=== PATIENT | female | born 1965 | race Caucasian/White ===

== ENCOUNTER → 2016-06-24 | Outpatient (CLI) | payer BC ==
[~2016-06-24] MED LIST: IOPAMIDOL (ISOVUE-300) 100 ML BTL IV ONE
== END ==
LOC: FIMAGING 13:58
PROVIDERS: ATTEND Physical Medicine & Rehabilitation
DX: M53.3 Sacrococcygeal disorders, not elsewhere classified (principal); N83.202 Unspecified ovarian cyst, left side; M71.352 Other bursal cyst, left hip
CPT/HCPCS: Q9967

== ENCOUNTER 2016-07-13 11:27 | Emergency (ER) | payer BC ==
--- NOTE | 2016-07-13 11:47 | CPEKG ---
Heart Rate: 92 RR Interval: 652 P-R Interval: 136 QRSD Interval: 82 QT Interval: 348 QTC Interval: 431 P [place]: 60 QRS [place]: 85 T Wave [place]: 60 EKG Severity - NORMAL ECG - EKG Impression: SINUS RHYTHM Electronically Signed By: Moustapha Campos 13-Jul-2016 12:33:53
[2016-07-13 11:57] VITALS: TEMP 97.3
[2016-07-13] MEDS ORDERED: ASPIRIN 81 MG CHEWABLE TAB PO ONE ×2 (12:01)
[2016-07-13 12:14] LABS: % IMMATURE GRANULYOCYTES 0.2 % (0.0-1.1); ABSOLUTE IMMATURE GRANULOCYTES 0.01 10^3/uL (0.00-0.10); ADD DIFF? NO; ADD MORPH? NO; ADD SCAN? NO; ATYPICAL LYMPHOCYTE FLAG 0 (0-99); FRAGMENT RBC FLAG 0 (0-99); HEMATOCRIT 42.3 % (38.0-47.0); HEMOGLOBIN 14.8 g/dL (12.6-16.3); LEFT SHIFT FLG 0 (0-99); LIPEMIA HEMOLYSIS FLAG 90 (0-99); MEAN CELL VOLUME 91.6 fL (81.5-99.8); PLATELET CLUMPS FLAG 10 (0-99); PLATELET COUNT 249 10^3/uL (150-400); RED BLOOD CELL COUNT 4.62 10^6/uL (4.18-5.33); RED CELL DISTRIBUTION WIDTH 12.6 % (11.5-15.2)
--- NOTE | 2016-07-13 12:27 | EDPHY ---
H & P Time Seen by Provider: 07/13/16 11:46 HPI/ROS: This patient complains of chest pressure 3/10 intensity since 11/12 this morning that persists without any clear exacerbating factors except that it is slightly worse with a deep breath. She reports some bilateral hand tingling associated with this which is mild. She also feels some discomfort between her shoulder blades associated with the symptoms. She reports slight shortness of breath associated with this as well. She does not recall having this discomfort in the past. She did have 1 prior episode of chest pain is attributed to GI sources. ROS: No fevers or chills. No other constitutional symptoms. HEENT: No URI symptoms, sore throat or other complaints. Neuro: She reports some tingling bilateral hands that has been worked up at [facility] for orthopedics with negative C-spine MRI 5 to be related to potential thoracic outlet syndrome versus peripheral neuropathy from working at a desk. Pulmonary: No cough. No respiratory distress. While the discomfort in her chest worsened slightly with a deep breath does not seem classically pleuritic. There is no sharp element to the pain. Cardiovascular: She describes an occasional skipped beat her extra beat and goes on to describe a 2 week history of frequent awakening feeling like her heart is falling. This feeling is brief and sometimes associated with the feeling of skipped beat in her heart but she is usually able to go back to sleep within 15 minutes without other symptoms. She also reports some mild left more than right leg pain which she orthopedic Center thinks is related to her peroneal nerve. No recent calf swelling. GI: Minimal nausea. No vomiting. No acid reflux symptoms noted. She had some loose stool this morning. No blood or tarry stools. : No complaints integumentary: No skin rash endocrine: No complaints 10 point ROS is otherwise negative. Source: Patient Exam Limitations: No limitations - Personal History LMP (Females 10-55): Irregular Current Tetanus/Diphtheria Vaccine: Yes - Medical/Surgical History PMH: Borderline elevated cholesterol. Recent normal C-spine MRI Recent normal CT lumbar per patient's report Ovarian cyst She thinks she may be perimenopausal with some feeling of temperature variation recently Hx Asthma: No Hx Chronic Respiratory Disease: No Hx Diabetes: No Hx Cardiac Disease: No Hx Renal Disease: No Hx Cirrhosis: No Hx Alcoholism: No Hx HIV/AIDS: No Hx Splenectomy or Spleen Trauma: No Other PMH: Fibroid removed. Gerd. neuropathy - Family History Significant Family History: No pertinent family hx. No: Heart disease, Vascular disease - Social History Smoking Status: Never smoked Alcohol Use: Rarely Drug Use: None Additional Social History: Patient did have a plane flight from from [place] on Thursday. 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 Eyes: Pupils equal and round no pallor or injection. ENT, Mouth: Mucous membranes moist. Respiratory: There are no retractions, lungs are clear to auscultation. Cardiovascular: Regular rate and rhythm. No murmur gallop or rub. No JVD. No peripheral edema. She does have mild left calf tenderness without swelling. Homans is negative. Gastrointestinal: Abdomen is soft and nontender, no masses, bowel sounds normal. Neurological: Alert with no focal deficits. Skin: Warm and dry, no rashes. Musculoskeletal: Neck is supple nontender. Extremities are symmetrical, full range of motion. Psychiatric: Mood and affect are normal DIFFERENTIAL DIAGNOSIS: After history and physical exam differential diagnosis was considered for GERD, esophageal spasm, coronary syndrome, [place], aortic dissection, PE, pneumothorax, pneumonia, pleurisy, anxiety with somatic symptoms , thoracic outlet syndrome Constitutional: Initial Vital Signs Temperature (C) 36.3 C 07/13/16 11:34 Heart Rate 95 07/13/16 11:34 Respiratory Rate 18 07/13/16 11:34 Blood Pressure 135/87 H 07/13/16 11:34 O2 Sat (%) 94 07/13/16 11:34 O2 Delivery Mode Room Air Allergies/Adverse Reactions: No Known Allergies Allergy (Verified 07/13/16 11:37) Home Medications: Medication Instructions Recorded Pantoprazole Sodium [Protonix 40mg 40 mg PO DAILY #30 tab 07/13/16 (*)] Medical Decision Making - Diagnostics EKG Interpretation: 12 lead EKG performed shortly after arrival when 45-indication chest pain Sinus rhythm at 92 Intervals normal [place] normal ST segments normal Overall assessment: Normal EKG For details please refer to trace master official read Imaging Results: Chest x-ray: Normal by my interpretation Imaging: I viewed and interpreted images myself ED Course/Re-evaluation: IV, monitor, aspirin Maalox/hyoscyamine p.o. she had incomplete relief of her symptoms. Patient's CBC, chemistries, troponin, urinalysis and D-dimer are normal Discussion: This patient presents with coronary risk factor of hypercholesterolemia and no risk factors for DVT except for plane travel with negative workup today for evidence of acute coronary/cardiac cause of pain, PE, pneumothorax or pneumonia. While she still has mild discomfort in her chest, I do not think there is a cardiac or pulmonary source of this. Counseled regarding this. Given that the symptoms are occurring at night I think GERD with esophagitis and/or esophageal spasm is a likely possible cause. I counseled regarding this. She understands the need to follow up with Cardiology for further evaluation and go to the emergency department if she has significant worsening. At the time of discharge her vital signs remained normal. She appears comfortable. - Data Points Laboratory Results: Laboratory Results 07/13/16 12:10 07/13/16 12:10 07/13/16 07/13/16 07/13/16 12:55 12:10 12:10 WBC RBC Hgb Hct MCV MCH MCHC RDW Plt Count MPV Neut % (Auto) Lymph % (Auto) [place] % (Auto) Eos % (Auto) Baso % (Auto) Nucleat RBC Rel Count Absolute Neuts (auto) Absolute Lymphs (auto) Absolute Monos (auto) Absolute Eos (auto) Absolute Basos (auto) Absolute Nucleated RBC Immature Gran % Immature Gran # D-Dimer < 0.27 ug/mLFEU ug/mLFEU (0.00-0.50) Sodium 142 mEq/L mEq/L (134-144) Potassium 4.2 mEq/L mEq/L (3.5-5.2) Chloride 107 mEq/L mEq/L (97-110) Carbon Dioxide 21 mEq/l L mEq/l (22-31) Anion Gap 14 mEq/L mEq/L (8-16) BUN 12 mg/dL mg/dL (7-23) Creatinine 0.7 mg/dL mg/dL (0.6-1.0) Estimated GFR > 60 Glucose 111 mg/dL H mg/dL (70-100) Calcium 9.4 mg/dL mg/dL (8.5-10.4) Troponin I < 0.012 ng/mL ng/mL (0-0.034) Urine Color YELLOW Urine Appearance CLEAR Urine pH 7.5 (5.0-7.5) Ur Specific [place] 1.010 (1.002-1.030) Urine Protein NEGATIVE (NEGATIVE) Urine Ketones NEGATIVE (NEGATIVE) Urine Blood NEGATIVE (NEGATIVE) Urine Nitrate NEGATIVE (NEGATIVE) Urine Bilirubin NEGATIVE (NEGATIVE) Urine Urobilinogen 0.2 EU EU (0.2-1.0) Ur Leukocyte Esterase NEGATIVE (NEGATIVE) Urine Glucose NEGATIVE (NEGATIVE) 07/13/16 12:10 WBC 6.11 10^3/uL 10^3/uL (3.80-9.50) RBC 4.62 10^6/uL 10^6/uL (4.18-5.33) Hgb 14.8 g/dL g/dL (12.6-16.3) Hct 42.3 % % (38.0-47.0) MCV 91.6 fL fL (81.5-99.8) MCH 32.0 pg pg (27.9-34.1) MCHC 35.0 g/dL g/dL (32.4-36.7) RDW 12.6 % % (11.5-15.2) Plt Count 249 10^3/uL 10^3/uL (150-400) MPV 11.0 fL fL (8.7-11.7) Neut % (Auto) 68.1 % % (39.3-74.2) Lymph % (Auto) 22.4 % % (15.0-45.0) [place] % (Auto) 7.5 % % (4.5-13.0) Eos % (Auto) 1.3 % % (0.6-7.6) Baso % (Auto) 0.5 % % (0.3-1.7) Nucleat RBC Rel Count 0.0 % % (0.0-0.2) Absolute Neuts (auto) 4.16 10^3/uL 10^3/uL (1.70-6.50) Absolute Lymphs (auto) 1.37 10^3/uL 10^3/uL (1.00-3.00) Absolute Monos (auto) 0.46 10^3/uL 10^3/uL (0.30-0.80) Absolute Eos (auto) 0.08 10^3/uL 10^3/uL (0.03-0.40) Absolute Basos (auto) 0.03 10^3/uL 10^3/uL (0.02-0.10) Absolute Nucleated RBC 0.00 10^3/uL 10^3/uL (0-0.01) Immature Gran % 0.2 % % (0.0-1.1) Immature Gran # 0.01 10^3/uL 10^3/uL (0.00-0.10) D-Dimer Sodium Potassium Chloride Carbon Dioxide Anion Gap BUN Creatinine Estimated GFR Glucose Calcium Troponin I Urine Color Urine Appearance Urine pH Ur Specific [place] Urine Protein Urine Ketones Urine Blood Urine Nitrate Urine Bilirubin Urine Urobilinogen Ur Leukocyte Esterase Urine Glucose Medications Given: Discontinued Medications Al Hydroxide/Mg Hydroxide (Maalox Susp) 30 ml PO EDNOW ONE Stop: 07/13/16 13:00 Last Admin: 07/13/16 13:04 Dose: 30 ml Aspirin (Aspirin) 324 mg PO EDNOW ONE Stop: 07/13/16 12:02 Last Admin: 07/13/16 12:02 Dose: 324 mg Aspirin (Aspirin) 324 mg PO EDNOW ONE Stop: 07/13/16 12:02 Last Admin: 07/13/16 12:09 Dose: Not Given Hyoscyamine Sulfate (Levsin, Hyomax-Sl) 0.25 mg PO EDNOW ONE Stop: 07/13/16 12:38 Last Admin: 07/13/16 12:44 Dose: 0.25 mg Departure - Departure Disposition: Home, Routine, Self-Care Clinical Impression: Chest pain Qualifiers: Chest pain type: unspecified Qualified Code(s): R07.9 - Chest pain, unspecified Condition: Good Instructions: Chest Pain (ED) Additional Instructions: Diagnosis: Chest pain After workup today, I find no evidence of heart along cause of your symptoms although we cannot entirely rule this out with 1 visit. Plan: Start Protonix or Prilosec-40 mg a day for possibility of acid reflux with esophageal spasm or esophagitis. Maalox in addition as needed. Call Dr. Tam-[employer] arrange follow-up appointment for further evaluation as an outpatient. Go to the emergency department for any significant worsening despite the treatment plan. Referrals: Oberbeck,Viola P [Primary Care Provider] - As per Instructions Ovidio Tam MD [Medical Doctor] - As per Instructions Prescriptions: Pantoprazole Sodium [Protonix 40mg (*)] 40 mg PO DAILY #30 tab
[2016-07-13 12:28] LABS: ANION GAP 14 mEq/L (8-16); CALCIUM 9.4 mg/dL (8.5-10.4); CARBON DIOXIDE 21 mEq/l (22-31); CHLORIDE 107 mEq/L (97-110); CREATININE 0.7 mg/dL (0.6-1.0); GLOMERULAR FILTRATION RATE > 60; GLUCOSE 111 mg/dL (70-100); POTASSIUM 4.2 mEq/L (3.5-5.2); SODIUM 142 mEq/L (134-144)
[2016-07-13] MEDS ORDERED: HYOSCYAMINE SULFATE 0.125 MG TAB PO ONE (12:37)
[2016-07-13 12:41] LABS: TROPONIN I < 0.012 ng/mL (0-0.034)
[2016-07-13] MEDS ORDERED: MAG HYDROX/AL HYDROX/SIMETH 30 ML UDCUP PO ONE (12:59)
[2016-07-13 13:04] LABS: COLOR YELLOW; LEUKOCYTE ESTERASE,URINE NEGATIVE (NEGATIVE); NITRITE,URINE NEGATIVE (NEGATIVE); PH,URINE 7.5 (5.0-7.5)
[2016-07-13 13:25] VITALS: BP 110/73; PULSE 76; RESP 18; O2SAT 94
== END 2016-07-13 13:20 | disposition home or self-care (01) ==
LOC: CED 11:27
DX: R07.89 Other chest pain (principal)
CPT/HCPCS: 71020-PO; 80048-PO; 81003-PO; 84484-PO; 85025-PO; 85378-PO